=== PATIENT | male | born 1990 | race Caucasian/White ===

== ENCOUNTER 2018-06-13 02:31 | Inpatient (IN) | payer OTHER, MEDICAID ==
[~2018-06-13] VITALS: Ht 167.6 cm; Wt 74.8 kg
[2018-06-13] MEDS ORDERED: ONDANSETRON HCL/PF 4 MG/2 ML VIAL ONE ×2 (02:56→03:49)
[2018-06-13] MEDS ORDERED: ONDANSETRON HCL/PF 4 MG/2 ML VIAL IVP ONE (03:00)
[2018-06-13] MEDS ORDERED: IV NS 0.9% 1,000 ML BAG IV ONE ×3 (03:00→05:00)
--- NOTE | 2018-06-13 03:01 | NUR ---
PT PRESENTED TO THE ER WITH A C/O N/V. PT APPEARS PALE AND NAUSEOUS. PT WAS PLACED ON THE MONITOR AND CONTINUOUS PULSE OX. PT AMBULATED TO THE BATHROOM TO GIVE A URINE SAMPLE. PT WAS UNABLE TO GIVE A SAMPLE AT THIS TIME.
[2018-06-13 03:34] LABS: CALCIUM, SERUM 9.6 mg/dL (8.5-10.1); POTASSIUM 3.6 mmol/L (3.5-5.1)
[2018-06-13 03:41] LABS: ALBUMIN 4.9 g/dL (3.4-5.0); BILIRUBIN,DIRECT 0.1 mg/dL (0.0-0.2); BILIRUBIN,TOTAL 0.8 mg/dL (0.2-1.0); TOTAL PROTEIN, SERUM 8.5 g/dL (6.4-8.2)
[2018-06-13 03:54] LABS: BASOPHILS % (AUTO) 0.3 % (0.0-2.0); EOSINOPHILS % (AUTO) 0.1 % (0.0-6.0); HEMATOCRIT 45 % (39-51); HEMOGLOBIN 15.2 g/dL (13.5-17.5); LYMPHOCYTES # (AUTO) 2.1 /CMM (0.8-4.8); LYMPHOCYTES % (AUTO) 16.2 % (20.0-44.0); MEAN CORPUSCULAR HGB CONC 34 g/dl (31.0-36.0); MEAN CORPUSCULAR VOLUME 94 fL (80-96); MONOCYTES # (AUTO) 1.5 /CMM (0.1-1.30); MONOCYTES % (AUTO) 11.6 % (2.0-12.0); NEUTROPHILS # (AUTO) 9.5 /CMM (1.8-8.9); NEUTROPHILS % (AUTO) 71.8 % (43.0-81.0); PLATELET COUNT (AUTO) 418 /CMM (150-450); RED BLOOD CELL COUNT(AUTO) 4.81 MIL/uL (4.5-6.0); WHITE BLOOD COUNT (AUTO) 13.2 K/uL (4.3-11.0)
--- NOTE | 2018-06-13 03:58 | NUR ---
PT TRIED TO GIVE A URINE SAMPLE. PT WAS UNABLE. NOTIFIED.
[2018-06-13] MEDS ORDERED: ONDANSETRON HCL/PF 4 MG/2 ML VIAL IV ONE (04:00)
--- NOTE | 2018-06-13 04:50 | NUR ---
PT TRIED TO GIVE A URINE SAMPLE. PT WAS UNABLE. BLADDER SCANNER USED. PT HAS 34ML URINE IN HIS BLADDER.
[2018-06-13] MEDS ORDERED: METOCLOPRAMIDE HCL 10 MG/2 ML VIAL ONE (05:14)
--- NOTE | 2018-06-13 05:16 | NUR ---
PT IS STILL FEELING NAUSEATED. PT VOMITTED X 1. MD NOTIFIED AND NEW ORDER GIVEN.
[2018-06-13] MEDS ORDERED: METOCLOPRAMIDE HCL 10 MG/2 ML VIAL IV ONE (05:30)
[2018-06-13] MEDS ORDERED: diphenhydrAMINE HCL 50 MG/ML VIAL ONE (05:31)
--- NOTE | 2018-06-13 05:33 | NUR ---
PT BEGAN SHAKING AND FELT RESTLESS AFTER THE REC'ING THE REGLAN. NOTIFIED. NEW ORDER GIVEN. PT IS ON THE MONITOR AND CONTINUOUS PULSE OX.
--- NOTE | 2018-06-13 05:35 | NUR ---
PT FELT COLD AND REC'D WARM BLANKETS.
--- NOTE | 2018-06-13 05:46 | NUR ---
REPORT GIVEN TO KALE VILA
[2018-06-13] MEDS ORDERED: IV NS 0.9% 1,000 ML IV PRN (05:58)
[2018-06-13] MEDS ORDERED: ONDANSETRON HCL/PF 4 MG/2 ML VIAL IVP PRN (06:00)
[2018-06-13] MEDS ORDERED: ACETAMINOPHEN 325 MG TABLET PO PRN (06:00)
[2018-06-13] MEDS ORDERED: diphenhydrAMINE HCL 50 MG/ML VIAL IV ONE (06:00)
[2018-06-13] MEDS ORDERED: MAG HYDROX/AL HYDROX/SIMETH 30 ML UDC PO PRN (06:00)
[2018-06-13] MEDS ORDERED: MAGNESIUM HYDROXIDE 30 ML UDC PO PRN (06:00)
[2018-06-13] MEDS ORDERED: HYDROCODONE/APAP 5/325MG 1 EACH TABLET PO PRN (06:00)
[2018-06-13 06:40] VITALS: BP 131/92
--- NOTE | 2018-06-13 06:40 | NUR ---
MS RN OPENING NOTES: RECEIVED PT FROM ER NURSEALYSSA. FATHER AT BEDSIDE. PT IS A/OX4. PT IN MILD DISTRESS COMPLAINING OF MILD PAIN IN HIS ABDOMINAL AREA. PT HAS IV ON RAC AND IS PATENT AND INTACT. BED KEPT IN LOW, LOCKED POSITION, AND SIDE RAILS X 2UP.
--- NOTE | 2018-06-13 07:30 | NUR ---
MS RN CLOSING NOTES: ALL NEEDS WERE ATTENDED AND ANTICIPATED FOR. FATHER AT BEDSIDE. PT IS A/OX4. PT DOES NOT WANT TO CHANGE IN A GOWN AT THIS TIME. IV INTACT AND IS BEING INFUSED WITH IV NS AT 125ML/HR. BED KEPT IN LOW, LOCKED POSITION, AND SIDE RAILS X 2UP. MRSA SWAB COLLECTED AND PLACED IN REFRIGERATOR. ENDORSED TO AM NURSE FOR KALA.
[2018-06-13] MEDS ORDERED: ALPR2TAB7 PO (07:44)
[2018-06-13 07:58] VITALS: BP 134/74
--- NOTE | 2018-06-13 08:55 | NUR ---
MS RN INITIAL NOTES Patient is awake, had breakfast with poor appetite, reports nausea after eating. Zofran 4mg IV PRN given, will reassess. Currently on full liquids diet, IVF infusing. Stable on RA, denies pain. Maintained safety, will cont to monitor.
[2018-06-13] MEDS ORDERED: PANTOPRAZOLE 40 MG VIAL IV SCH (09:00)
--- NOTE | 2018-06-13 12:23 | NUR ---
MS RN AGAINST MEDICAL ADVICE Patient ambulates independently, no bowel movement, no episode of diarrhea. Patient refusing to stay hosp. per patient he feels better now, denies nausea and vomiting. Educated provided, patient not being seen by hospitalist yet. Risk and consequences involved in leaving the hosp. the benefits of continued treatment and hospitalization explained to patient and esvin,father. Both patient and esvin,father verbalized understanding and voluntarily wants to leave against medical advice. Instructed patient to return to emergency if symptoms continuous to persist and gets worst. IVC in RFA removed. Notified PAOLA Wilkerson and housemaid. Patient left hosp. accompanied by his father esvin.
[2018-06-13 12:45] LABS: APPEARANCE,URINE CLEAR (CLEAR); BILIRUBIN,URINE NEGATIVE (NEGATIVE); BLOOD, URINE NEGATIVE Ery/uL (NEGATIVE); COLOR,URINE YELLOW (YELLOW); KETONES,URINE 3+ (NEGATIVE); LEUKOCYTE ESTERASE ,URINE NEGATIVE (NEGATIVE); NITRITE, URINE NEGATIVE (NEGATIVE); PROTEIN,URINE NEGATIVE (NEGATIVE); UGLUCOSE NEGATIVE (NEGATIVE)
[2018-06-13 13:20] LABS: BACTERIA,URINE None seen /HPF (None Seen); RBC,URINE NONE SEEN /HPF (0-2); WBC,URINE NONE SEEN /HPF (0-3)
[2018-06-13 13:21] LABS: SQUAMOUS EPITHELIAL CELL,UR Few /HPF (None Seen)
== END 2018-06-13 12:30 | disposition left against medical advice (07) | DRG 422 ==
LOC: ER 02:33 → MEDSG2 06:10
PROVIDERS: ADMIT Registered Nurse; ATTEND Registered Nurse
DX: E86.0 Dehydration (principal); D72.829 Elevated white blood cell count, unspecified; R11.2 Nausea with vomiting, unspecified; R19.7 Diarrhea, unspecified
CPT/HCPCS: 36415; 80048-TC; 80076-TC; 81000-TC; 83690-TC; 85025-TC; 87081-TC; C9113; G0378; J1200; J2405; J2765; J7030

== ENCOUNTER 2018-06-18 14:30 | Emergency (ER) | payer OTHER, MEDICAID ==
[~2018-06-18] VITALS: Ht 167.6 cm; Wt 68.5 kg
[~2018-06-18 14:30] MED LIST: ALPR2TAB7 PO
--- NOTE | 2018-06-18 15:09 | NUR ---
DR REICH AT BEDSIDE FOR EVAL.
--- NOTE | 2018-06-18 15:15 | NUR ---
IV LINE STARTED BLOOD DRAWN AND SENT TO LAB.
[2018-06-18] MEDS ORDERED: ONDANSETRON HCL/PF 4 MG/2 ML VIAL ONE (15:18)
[2018-06-18 15:21] LABS: BASOPHILS # (AUTO) 0.1 /CMM (0.0-0.2); BASOPHILS % (AUTO) 0.6 % (0.0-2.0); EOSINOPHILS % (AUTO) 0.2 % (0.0-6.0); HEMATOCRIT 46 % (39-51); HEMOGLOBIN 15.5 g/dL (13.5-17.5); LYMPHOCYTES # (AUTO) 1.7 /CMM (0.8-4.8); LYMPHOCYTES % (AUTO) 19.1 % (20.0-44.0); MEAN CORPUSCULAR HGB CONC 34 g/dl (31.0-36.0); MEAN CORPUSCULAR VOLUME 93 fL (80-96); MONOCYTES # (AUTO) 0.6 /CMM (0.1-1.30); MONOCYTES % (AUTO) 6.6 % (2.0-12.0); NEUTROPHILS # (AUTO) 6.4 /CMM (1.8-8.9); NEUTROPHILS % (AUTO) 73.5 % (43.0-81.0); PLATELET COUNT (AUTO) 401 /CMM (150-450); RED BLOOD CELL COUNT(AUTO) 4.91 MIL/uL (4.5-6.0); WHITE BLOOD COUNT (AUTO) 8.7 K/uL (4.3-11.0)
[2018-06-18] MEDS ORDERED: ONDANSETRON HCL/PF 4 MG/2 ML VIAL IVP ONE (15:30)
[2018-06-18] MEDS ORDERED: IV NS 0.9% 1,000 ML BAG IV ONE (15:30)
--- NOTE | 2018-06-18 15:30 | NUR ---
RADIOLOGY AT BEDSIDE FOR CHEST XRAY.
[2018-06-18 15:36] LABS: CALCIUM, SERUM 8.9 mg/dL (8.5-10.1); CREATININE 0.9 mg/dL (0.6-1.3); POTASSIUM 4.2 mmol/L (3.5-5.1)
[2018-06-18 15:42] LABS: ALBUMIN 4.3 g/dL (3.4-5.0); BILIRUBIN,DIRECT 0.1 mg/dL (0.0-0.2); BILIRUBIN,TOTAL 0.4 mg/dL (0.2-1.0); TOTAL PROTEIN, SERUM 7.9 g/dL (6.4-8.2)
--- NOTE | 2018-06-18 16:37 | NUR ---
Patient discharged to home in stable condition. Written and verbal after care instructions given. Patient verbalizes understanding of instruction.IV removed. Catheter intact and site benign. Pressure and 4x4 applied to site. No bleeding noted.
[2018-06-18 16:38] VITALS: BP 128/62
== END 2018-06-18 16:40 | disposition home or self-care (01) ==
LOC: ER 14:32
DX: J06.9 Acute upper respiratory infection, unspecified (principal); B34.9 Viral infection, unspecified; R11.2 Nausea with vomiting, unspecified; F12.10 Cannabis abuse, uncomplicated
CPT/HCPCS: 36415; 71045-TC; 80048-TC; 80076-TC; 83690-TC; 85025-TC; 87400; J2405; J7030